=== PATIENT | female | born 1960 | race Caucasian/White ===

== ENCOUNTER → 2020-02-17 08:20 | Outpatient (CLI) | payer BC, SELFPAY ==
--- NOTE | 2020-02-17 08:25 | DI.RAD.S_ITS ---
PROCEDURE: XR TIBIA FUBULA RT 2V INDICATIONS: r leg pain TECHNIQUE: 2 views of the tibia and fibula were acquired. COMPARISON: None. FINDINGS: Bones: No fractures or dislocations. No suspicious bony lesions. Partially imaged knee arthroplasty components. Soft tissues: No suspicious soft tissue calcifications or masses. IMPRESSION: Intact right tibia and fibula. Dictated by: Erika Rain M.D. on 02/17/2020 at 8:44 Approved by: Erika Rain M.D. on 02/17/2020 at 8:46
--- NOTE | 2020-02-17 08:25 | DI.RAD.S_ITS ---
PROCEDURE: XR FOOT RT MIN 3V INDICATIONS: r leg pain TECHNIQUE: Three views of the foot were acquired. COMPARISON: None. FINDINGS: Bones: No fractures or dislocations. Moderate to severe degenerative change at the 1st MTP joint including hypertrophic spur formation, joint space loss, and articular surface flattening. Degenerative hypertrophic spurring in the midfoot. Small plantar calcaneal spur. No suspicious bony lesions. Soft tissues: No tibiotalar joint effusion. Achilles tendon appears normal. IMPRESSION: 1. No acute fractures. 2. 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 Dictated by: Erika Rain M.D. on 02/17/2020 at 8:47 Approved by: Erika Rain M.D. on 02/17/2020 at 8:49
--- NOTE | 2020-02-17 08:25 | DI.RAD.S_ITS ---
PROCEDURE: XR ANKLE RT MIN 3V INDICATIONS: r leg pain TECHNIQUE: Three views of the ankle were acquired. COMPARISON: None. FINDINGS: Bones: Decreased mineralization. No fractures or dislocations. Ankle mortise is normally aligned. No suspicious bony lesions. Degenerative spurring and subcortical cystic changes in the lateral malleolus. Dystrophic calcifications of remote trauma at the medial malleolus. Spurring at the tibiotalar joint and in the dorsal midfoot. Small plantar calcaneal spur. Soft tissues: No tibiotalar joint effusion. Achilles tendon appears normal. IMPRESSION: 1. No acute fractures. 2. Moderate degenerative changes as described. REFERENCE TEXT DELETE FROM FINAL REPORT Lauge Mcdonald classification of fracture patterns. Each pattern has a distinctive fibular fx. Supination adduction: * stage 1: transverse fracture of lateral malleolus. * stage 2: vertical fracture at junctio of medial malleolus and tibial plafond. Pronation abduction: * stage 1: transverse fracture of medial malleolus. * stage 2: oblique fracture of fibular immediately above syndesmosis. Supination external rotation (most common): * stage 1: rupture of anterior tib-fib ligament at syndesmosis. * stage 2: spiral lateral malleolar fracture. * stage 3: posterior malleolar fracture or posterior tib-fib ligament rupture. * stage 4: medial malleolar fracture. Pronation external rotation: * stage 1: medial malleolar fx. * stage 2: rupture of anterior tib-fib ligament at syndesmosis. * stage 3: fibular fracture above syndesmosis (can be a Maisonneuve fx). * stage 4: posterior malleolar fracture or posterior tib-fib ligament rupture. Dictated by: Erika Rain M.D. on 02/17/2020 at 8:46 Approved by: Erika Rain M.D. on 02/17/2020 at 8:47
== END ==
PROVIDERS: Referring Provider Physician Assistant; Visit Provider Physician Assistant
DX: M25.571 Pain in right ankle and joints of right foot (principal); M79.604 Pain in right leg; M79.671 Pain in right foot; M77.31 Calcaneal spur, right foot
CPT/HCPCS: 73590; 73610; 73630